=== PATIENT | female | born 2000 | race Asian ===

== ENCOUNTER 2018-08-03 12:03 | Emergency (ER) | payer BC ==
[2018-08-03] MEDS ORDERED: Metoclopramide HCl 10 MG TAB ONE (13:02)
[2018-08-03] MEDS ORDERED: Ketorolac Tromethamine 30 MG/ML VIAL ONE (13:02)
== END 2018-08-03 13:20 | disposition home or self-care (01) ==
LOC: ERS 12:03
DX: F07.81 Postconcussional syndrome (principal)
CPT/HCPCS: 96372; J1885; J8597